=== PATIENT | female | born 1940 | race Caucasian/White ===

== ENCOUNTER 2024-10-13 02:30 | Outpatient (RCR) | payer MEDICARE, OTHER, SELFPAY ==
[2024-10-13 08:53] LABS: Abs Immature Grans 0.01 10^3/uL (0.0-0.06); Absolute Basophil Count 0.04 10^3/uL (0.0-0.2); Absolute Eosinophil Count 0.15 10^3/uL (0.0-0.7); Absolute Lymphocyte Count 1.64 10^3/uL (1.2-3.4); Absolute Monocyte Count 0.43 10^3/uL (0.1-0.8); Absolute Neutrophil Count 4.74 10^3/uL (1.2-6.7); Basophils % 0.6 %; Eosinophils % 2.1 %; HCT 39.4 % (36.0-46.0); HGB 12.8 g/dL (11.2-15.7); Immature Grans % 0.1 %; Lymphocytes % 23.4 %; MCH 29.5 pg (27.0-33.0); MCHC 32.5 % (32.0-36.0); MCV 91 fL (80-95); Monocytes % 6.1 %; Neutrophils % 67.7 %; RBC 4.34 10^6/uL (3.93-5.22); RDW-SD 43.1 fL; WBC 7.01 10^3/uL (4.4-10.8)
[2024-10-13 09:15] LABS: ALT 30 U/L (14-59); AST 13 U/L (15-37); Albumin 3.2 g/dL (3.4-5.0); Alkaline Phosphatase 120 U/L (46-116); Anion Gap 8.3 mmol/L (3-11); BUN 23 mg/dL (7-18); Bilirubin, Total 0.6 mg/dL (0.2-1.0); CO2 28.7 mmol/L (21.0-32.0); CREATININE 1.1 mg/dL (0.55-1.02); Calcium 9.6 mg/dL (8.5-10.1); Chloride 105 mmol/L (98-107); Estimated GFR 49.86 (mL/min/1.73m2); Glucose 383 mg/dL (74-106); Potassium 4.4 mmol/L (3.5-5.1); Sodium 142 mmol/L (136-145); Total Protein 6.6 g/dL (6.4-8.2)
[2024-10-13] MEDS: Normal Saline Flush 10 ML SYR IVP (10:10)
[2024-10-14 13:40] LABS: CA 19-9 2381 U/mL (<35)
[2024-10-15 11:18] VITALS: BP 120/76; PULSE 81; RESP 17; TEMP 36.9; O2SAT 98
[2024-10-18 09:57] LABS: Result Summary NEGATIVE
[2024-10-21 09:28] LABS: Misc Referral (MAYO) See Comments
== END 2024-10-17 23:59 | disposition home or self-care (01) ==
LOC: INF 02:30
PROVIDERS: PCP Family Medicine; Visit Provider Internal Medicine Hematology & Oncology
DX: C25.0 Malignant neoplasm of head of pancreas (principal)
CPT/HCPCS: 36591; 80053; 81232; 81404; 85025; 86301

== ENCOUNTER 2024-11-10 01:56 | Outpatient (RCR) | payer MEDICARE, OTHER, SELFPAY ==
[2024-10-27 10:08] LABS: Abs Immature Grans 0.01 10^3/uL (0.0-0.06); Absolute Basophil Count 0.06 10^3/uL (0.0-0.2); Absolute Eosinophil Count 0.36 10^3/uL (0.0-0.7); Absolute Lymphocyte Count 1.74 10^3/uL (1.2-3.4); Absolute Monocyte Count 0.53 10^3/uL (0.1-0.8); Absolute Neutrophil Count 3.47 10^3/uL (1.2-6.7); Eosinophils % 5.8 %; HGB 12.7 g/dL (11.2-15.7); Immature Grans % 0.2 %; Lymphocytes % 28.2 %; MCH 29.7 pg (27.0-33.0); MCHC 32.6 % (32.0-36.0); MCV 91 fL (80-95); Monocytes % 8.6 %; Neutrophils % 56.2 %; Platelet Count 130 10^3/uL (130-400); RBC 4.27 10^6/uL (3.93-5.22); RDW 13.7 % (11.7-14.6); RDW-SD 45.9 fL; WBC 6.17 10^3/uL (4.4-10.8)
[2024-10-27] MEDS: Normal Saline Flush 10 ML SYR IVP (10:20)
[2024-10-27 10:23] LABS: ALT 35 U/L (14-59); AST 17 U/L (15-37); Albumin 2.8 g/dL (3.4-5.0); Alkaline Phosphatase 132 U/L (46-116); Anion Gap 5.1 mmol/L (3-11); BUN 13 mg/dL (7-18); Bilirubin, Total 0.3 mg/dL (0.2-1.0); CO2 29.9 mmol/L (21.0-32.0); Chloride 108 mmol/L (98-107); Glucose 326 mg/dL (74-106); Potassium 4.5 mmol/L (3.5-5.1); Sodium 143 mmol/L (136-145); Total Protein 5.7 g/dL (6.4-8.2)
[2024-10-28 10:29] LABS: CA 19-9 1778 U/mL (<35)
[2024-11-10] MEDS: Normal Saline Flush 10 ML SYR IVP (09:41)
[2024-11-10 09:47] LABS: Abs Immature Grans 0.02 10^3/uL (0.0-0.06); Absolute Basophil Count 0.06 10^3/uL (0.0-0.2); Absolute Eosinophil Count 0.22 10^3/uL (0.0-0.7); Absolute Lymphocyte Count 1.38 10^3/uL (1.2-3.4); Absolute Neutrophil Count 3.49 10^3/uL (1.2-6.7); Basophils % 1.1 %; Eosinophils % 3.9 %; HCT 33.2 % (36.0-46.0); HGB 10.9 g/dL (11.2-15.7); Immature Grans % 0.4 %; Lymphocytes % 24.3 %; MCH 29.4 pg (27.0-33.0); MCHC 32.8 % (32.0-36.0); MCV 90 fL (80-95); MPV 11.2 fL (8.0-11.0); Monocytes % 8.8 %; Neutrophils % 61.5 %; Platelet Count 192 10^3/uL (130-400); RBC 3.71 10^6/uL (3.93-5.22); RDW 14.1 % (11.7-14.6); RDW-SD 45.6 fL; WBC 5.67 10^3/uL (4.4-10.8)
[2024-11-10 10:06] LABS: ALT 44 U/L (14-59); AST 19 U/L (15-37); Albumin 2.6 g/dL (3.4-5.0); Alkaline Phosphatase 106 U/L (46-116); Anion Gap 9.3 mmol/L (3-11); BUN 16 mg/dL (7-18); Bilirubin, Total 0.3 mg/dL (0.2-1.0); CO2 26.7 mmol/L (21.0-32.0); CREATININE 0.9 mg/dL (0.55-1.02); Calcium 9.3 mg/dL (8.5-10.1); Chloride 107 mmol/L (98-107); Estimated GFR 63.43 (mL/min/1.73m2); Glucose 331 mg/dL (74-106); Potassium 4.2 mmol/L (3.5-5.1); Sodium 143 mmol/L (136-145)
[2024-11-11 13:06] LABS: CA 19-9 912 U/mL (<35)
== END 2024-11-16 23:59 | disposition home or self-care (01) ==
LOC: INF 01:56
PROVIDERS: PCP Family Medicine; Visit Provider Internal Medicine Hematology & Oncology
DX: C25.0 Malignant neoplasm of head of pancreas (principal); Z45.2 Encounter for adjustment and management of vascular access device
CPT/HCPCS: 36415; 36591; 80053; 85025; 86301

== ENCOUNTER 2024-12-15 02:57 | Outpatient (RCR) | payer MEDICARE, OTHER, SELFPAY ==
[2024-11-17] MEDS: Normal Saline Flush 10 ML SYR IVP (09:47)
[2024-11-17 09:55] LABS: Abs Immature Grans 0.03 10^3/uL (0.0-0.06); Absolute Basophil Count 0.02 10^3/uL (0.0-0.2); Absolute Eosinophil Count 0.11 10^3/uL (0.0-0.7); Absolute Lymphocyte Count 1.31 10^3/uL (1.2-3.4); Absolute Monocyte Count 0.16 10^3/uL (0.1-0.8); Absolute Neutrophil Count 3.02 10^3/uL (1.2-6.7); Basophils % 0.4 %; Eosinophils % 2.4 %; HCT 32.5 % (36.0-46.0); HGB 10.5 g/dL (11.2-15.7); Immature Grans % 0.6 %; Lymphocytes % 28.2 %; MCH 29.2 pg (27.0-33.0); MCHC 32.3 % (32.0-36.0); MCV 91 fL (80-95); MPV 10.7 fL (8.0-11.0); Monocytes % 3.4 %; Platelet Count 115 10^3/uL (130-400); RBC 3.59 10^6/uL (3.93-5.22); RDW 14.2 % (11.7-14.6); RDW-SD 46.5 fL; WBC 4.65 10^3/uL (4.4-10.8)
[2024-11-17 10:35] LABS: ALT 31 U/L (14-59); AST 15 U/L (15-37); Albumin 2.8 g/dL (3.4-5.0); Alkaline Phosphatase 111 U/L (46-116); BUN 18 mg/dL (7-18); Bilirubin, Total 0.4 mg/dL (0.2-1.0); CREATININE 0.9 mg/dL (0.55-1.02); Chloride 106 mmol/L (98-107); Estimated GFR 63.43 (mL/min/1.73m2); Glucose 302 mg/dL (74-106); Potassium 4.6 mmol/L (3.5-5.1); Sodium 141 mmol/L (136-145); Total Protein 6.1 g/dL (6.4-8.2)
[2024-11-18 11:51] LABS: CA 19-9 674 U/mL (<35)
[2024-11-24 10:04] LABS: Abs Immature Grans 0.01 10^3/uL (0.0-0.06); Absolute Basophil Count 0.01 10^3/uL (0.0-0.2); Absolute Eosinophil Count 0.06 10^3/uL (0.0-0.7); Absolute Lymphocyte Count 1.14 10^3/uL (1.2-3.4); Absolute Monocyte Count 0.11 10^3/uL (0.1-0.8); Absolute Neutrophil Count 0.85 10^3/uL (1.2-6.7); Basophils % 0.5 %; Eosinophils % 2.8 %; HGB 9.9 g/dL (11.2-15.7); Immature Grans % 0.5 %; Lymphocytes % 52.3 %; MCH 29.6 pg (27.0-33.0); MCV 90 fL (80-95); MPV 10.7 fL (8.0-11.0); Neutrophils % 38.9 %; RBC 3.35 10^6/uL (3.93-5.22); RDW 14.2 % (11.7-14.6); RDW-SD 45.5 fL; WBC 2.18 10^3/uL (4.4-10.8)
[2024-11-24 10:22] LABS: ALT 27 U/L (14-59); AST 19 U/L (15-37); Albumin 2.6 g/dL (3.4-5.0); Alkaline Phosphatase 99 U/L (46-116); Anion Gap 7.8 mmol/L (3-11); BUN 15 mg/dL (7-18); Bilirubin, Total 0.3 mg/dL (0.2-1.0); CO2 28.2 mmol/L (21.0-32.0); CREATININE 0.8 mg/dL (0.55-1.02); Chloride 107 mmol/L (98-107); Estimated GFR 73.06 (mL/min/1.73m2); Glucose 237 mg/dL (74-106); Potassium 4.2 mmol/L (3.5-5.1); Sodium 143 mmol/L (136-145)
[2024-11-24 10:23] LABS: Diff Comment Diff Reviewed; Platelet Count 75 10^3/uL (130-400); RBC Morphology Normal
[2024-11-24] MEDS: Normal Saline Flush 10 ML SYR IVP (10:52)
[2024-12-01 12:07] LABS: Abs Immature Grans 0.01 10^3/uL (0.0-0.06); Absolute Basophil Count 0.03 10^3/uL (0.0-0.2); Absolute Eosinophil Count 0.08 10^3/uL (0.0-0.7); Absolute Lymphocyte Count 1.72 10^3/uL (1.2-3.4); Absolute Monocyte Count 0.47 10^3/uL (0.1-0.8); Absolute Neutrophil Count 1.53 10^3/uL (1.2-6.7); Basophils % 0.8 %; Eosinophils % 2.1 %; HCT 30.7 % (36.0-46.0); HGB 9.8 g/dL (11.2-15.7); Immature Grans % 0.3 %; Lymphocytes % 44.8 %; MCH 28.8 pg (27.0-33.0); MCHC 31.9 % (32.0-36.0); MCV 90 fL (80-95); MPV 10.4 fL (8.0-11.0); Monocytes % 12.2 %; Neutrophils % 39.8 %; Platelet Count 401 10^3/uL (130-400); RDW-SD 51.6 fL; WBC 3.84 10^3/uL (4.4-10.8)
[2024-12-01] MEDS: Normal Saline Flush 10 ML SYR IVP (12:11)
[2024-12-01 12:31] LABS: ALT 29 U/L (14-59); AST 23 U/L (15-37); Albumin 2.9 g/dL (3.4-5.0); Alkaline Phosphatase 114 U/L (46-116); Anion Gap 6.5 mmol/L (3-11); BUN 17 mg/dL (7-18); Bilirubin, Total 0.2 mg/dL (0.2-1.0); CO2 28.5 mmol/L (21.0-32.0); CREATININE 0.7 mg/dL (0.55-1.02); Calcium 9.2 mg/dL (8.5-10.1); Chloride 111 mmol/L (98-107); Estimated GFR 85.76 (mL/min/1.73m2); Glucose 196 mg/dL (74-106); Potassium 3.7 mmol/L (3.5-5.1); Sodium 146 mmol/L (136-145); Total Protein 5.9 g/dL (6.4-8.2)
[2024-12-15] MEDS: Normal Saline Flush 10 ML SYR IVP (09:45)
[2024-12-15 09:57] LABS: Abs Immature Grans 0.03 10^3/uL (0.0-0.06); Absolute Basophil Count 0.04 10^3/uL (0.0-0.2); Absolute Eosinophil Count 0.11 10^3/uL (0.0-0.7); Absolute Lymphocyte Count 1.43 10^3/uL (1.2-3.4); Absolute Monocyte Count 0.57 10^3/uL (0.1-0.8); Basophils % 0.7 %; Eosinophils % 1.9 %; HCT 31.4 % (36.0-46.0); HGB 9.8 g/dL (11.2-15.7); Immature Grans % 0.5 %; Lymphocytes % 25.2 %; MCH 29.1 pg (27.0-33.0); MCHC 31.2 % (32.0-36.0); MCV 93 fL (80-95); MPV 11.7 fL (8.0-11.0); Neutrophils % 61.7 %; Platelet Count 180 10^3/uL (130-400); RBC 3.37 10^6/uL (3.93-5.22); RDW 16.1 % (11.7-14.6); RDW-SD 53.9 fL; WBC 5.68 10^3/uL (4.4-10.8)
[2024-12-15 10:11] LABS: ALT 27 U/L (14-59); AST 23 U/L (15-37); Albumin 2.9 g/dL (3.4-5.0); Alkaline Phosphatase 116 U/L (46-116); Anion Gap 9.1 mmol/L (3-11); BUN 19 mg/dL (7-18); Bilirubin, Total 0.4 mg/dL (0.2-1.0); CO2 25.9 mmol/L (21.0-32.0); CREATININE 0.9 mg/dL (0.55-1.02); Chloride 109 mmol/L (98-107); Estimated GFR 63.43 (mL/min/1.73m2); Glucose 222 mg/dL (74-106); Potassium 3.8 mmol/L (3.5-5.1); Sodium 144 mmol/L (136-145)
[2024-12-16 10:32] LABS: CA 19-9 270 U/mL (<35)
== END 2024-12-17 23:59 | disposition home or self-care (01) ==
LOC: INF 02:57
PROVIDERS: PCP Family Medicine; Visit Provider Internal Medicine Hematology & Oncology
DX: C25.0 Malignant neoplasm of head of pancreas (principal); Z45.2 Encounter for adjustment and management of vascular access device
CPT/HCPCS: 36415; 36591; 80053; 85025; 86301

== ENCOUNTER 2025-01-12 10:50 | Outpatient (RCR) | payer MEDICARE, OTHER, SELFPAY ==
[2024-12-29 12:57] LABS: Abs Immature Grans 0.02 10^3/uL (0.0-0.06); Absolute Basophil Count 0.04 10^3/uL (0.0-0.2); Absolute Eosinophil Count 0.17 10^3/uL (0.0-0.7); Basophils % 0.7 %; Eosinophils % 3.1 %; HCT 31.8 % (36.0-46.0); Immature Grans % 0.4 %; Lymphocytes % 29.5 %; MCH 29.7 pg (27.0-33.0); MCHC 31.4 % (32.0-36.0); MCV 94 fL (80-95); MPV 11.4 fL (8.0-11.0); Neutrophils % 55.3 %; Platelet Count 170 10^3/uL (130-400); RBC 3.37 10^6/uL (3.93-5.22); RDW 16.4 % (11.7-14.6); RDW-SD 56.6 fL; WBC 5.43 10^3/uL (4.4-10.8)
[2024-12-29 13:50] LABS: ALT 30 U/L (14-59); AST 20 U/L (15-37); Albumin 3.2 g/dL (3.4-5.0); Alkaline Phosphatase 117 U/L (46-116); BUN 18 mg/dL (7-18); Bilirubin, Total 0.3 mg/dL (0.2-1.0); CREATININE 0.7 mg/dL (0.55-1.02); Calcium 8.7 mg/dL (8.5-10.1); Chloride 109 mmol/L (98-107); Estimated GFR 85.76 (mL/min/1.73m2); Glucose 232 mg/dL (74-106); Sodium 145 mmol/L (136-145); Total Protein 6.2 g/dL (6.4-8.2)
[2024-12-30 09:19] LABS: CA 19-9 680 U/mL (<35)
[2025-01-12] MEDS: Normal Saline Flush 10 ML SYR IVP (10:58)
[2025-01-12 11:38] LABS: Abs Immature Grans 0.01 10^3/uL (0.0-0.06); Absolute Basophil Count 0.03 10^3/uL (0.0-0.2); Absolute Eosinophil Count 0.09 10^3/uL (0.0-0.7); Absolute Lymphocyte Count 1.34 10^3/uL (1.2-3.4); Absolute Monocyte Count 0.56 10^3/uL (0.1-0.8); Absolute Neutrophil Count 2.83 10^3/uL (1.2-6.7); Basophils % 0.6 %; Eosinophils % 1.9 %; HCT 31.9 % (36.0-46.0); Immature Grans % 0.2 %; Lymphocytes % 27.6 %; MCH 29.2 pg (27.0-33.0); MCHC 31.3 % (32.0-36.0); MCV 93 fL (80-95); MPV 11.4 fL (8.0-11.0); Monocytes % 11.5 %; Neutrophils % 58.2 %; Platelet Count 209 10^3/uL (130-400); RBC 3.42 10^6/uL (3.93-5.22); RDW 16.1 % (11.7-14.6); RDW-SD 54.5 fL; WBC 4.86 10^3/uL (4.4-10.8)
[2025-01-12 11:54] LABS: ALT 29 U/L (14-59); AST 20 U/L (15-37); Albumin 3.2 g/dL (3.4-5.0); Alkaline Phosphatase 106 U/L (46-116); BUN 19 mg/dL (7-18); Bilirubin, Total 0.3 mg/dL (0.2-1.0); CREATININE 0.8 mg/dL (0.55-1.02); Calcium 8.8 mg/dL (8.5-10.1); Chloride 108 mmol/L (98-107); Estimated GFR 73.06 (mL/min/1.73m2); Glucose 254 mg/dL (74-106); Potassium 4.2 mmol/L (3.5-5.1); Sodium 143 mmol/L (136-145); Total Protein 6.1 g/dL (6.4-8.2)
[2025-01-13 10:08] LABS: CA 19-9 492 U/mL (<35)
== END 2025-01-16 23:59 | disposition home or self-care (01) ==
LOC: INF 10:50
PROVIDERS: PCP Family Medicine; Visit Provider Internal Medicine Hematology & Oncology
DX: C25.0 Malignant neoplasm of head of pancreas (principal); Z45.2 Encounter for adjustment and management of vascular access device
CPT/HCPCS: 36415; 36591; 80053; 85025; 86301

== ENCOUNTER 2025-01-27 00:50 | Outpatient (RCR) | payer MEDICARE, OTHER, SELFPAY ==
[2025-01-27 12:36] LABS: Abs Immature Grans 0.01 10^3/uL (0.0-0.06); HCT 32.5 % (36.0-46.0); HGB 10.6 g/dL (11.2-15.7); Immature Grans % 0.2 %; MCH 30.2 pg (27.0-33.0); MCHC 32.6 % (32.0-36.0); MCV 93 fL (80-95); MPV 11.4 fL (8.0-11.0); Platelet Count 238 10^3/uL (130-400); RBC 3.51 10^6/uL (3.93-5.22); RDW 15.9 % (11.7-14.6); RDW-SD 53.4 fL; WBC 5.76 10^3/uL (4.4-10.8)
[2025-01-27] MEDS: Normal Saline Flush 10 ML SYR IVP (12:40)
[2025-01-27 12:54] LABS: ALT 31 U/L (14-59); AST 22 U/L (15-37); Albumin 3.4 g/dL (3.4-5.0); Alkaline Phosphatase 111 U/L (46-116); Anion Gap 11.4 mmol/L (3-11); BUN 16 mg/dL (7-18); Bilirubin, Total 0.3 mg/dL (0.2-1.0); CO2 24.6 mmol/L (21.0-32.0); Calcium 9.1 mg/dL (8.5-10.1); Chloride 109 mmol/L (98-107); Estimated GFR 73.06 (mL/min/1.73m2); Glucose 178 mg/dL (74-106); Potassium 3.6 mmol/L (3.5-5.1); Sodium 145 mmol/L (136-145); Total Protein 6.4 g/dL (6.4-8.2)
[2025-01-27 23:09] LABS: CA 19-9 393 U/mL (<35)
== END 2025-02-16 23:59 | disposition home or self-care (01) ==
LOC: INF 00:50
PROVIDERS: PCP Family Medicine; Visit Provider Internal Medicine Hematology & Oncology
DX: C25.0 Malignant neoplasm of head of pancreas (principal); Z45.2 Encounter for adjustment and management of vascular access device
CPT/HCPCS: 36415; 36591; 80053; 85025; 86301

== ENCOUNTER 2025-03-02 03:38 | Outpatient (RCR) | payer MEDICARE, OTHER, SELFPAY ==
[2025-03-02] MEDS: Normal Saline Flush 10 ML SYR IVP (12:51)
[2025-03-02 13:16] LABS: Abs Immature Grans 0.01 10^3/uL (0.0-0.06); HCT 35.0 % (36.0-46.0); HGB 11.2 g/dL (11.2-15.7); MCH 29.1 pg (27.0-33.0); MCHC 32.0 % (32.0-36.0); MCV 91 fL (80-95); MPV 12.7 fL (8.0-11.0); Platelet Count 112 10^3/uL (130-400); RBC 3.85 10^6/uL (3.93-5.22); RDW 13.1 % (11.7-14.6); RDW-SD 43.4 fL; WBC 4.91 10^3/uL (4.4-10.8)
[2025-03-02 13:45] LABS: Immature Grans % 0.0 %; RBC Morphology Normal
[2025-03-02 13:56] LABS: ALT 23 U/L (14-59); AST 21 U/L (15-37); Albumin 3.3 g/dL (3.4-5.0); Alkaline Phosphatase 104 U/L (46-116); Anion Gap 8.6 mmol/L (3-11); BUN 17 mg/dL (7-18); Bilirubin, Total 0.3 mg/dL (0.2-1.0); CO2 28.4 mmol/L (21.0-32.0); Calcium 9.0 mg/dL (8.5-10.1); Chloride 105 mmol/L (98-107); Estimated GFR 63.43 (mL/min/1.73m2); Glucose 304 mg/dL (74-106); Potassium 4.4 mmol/L (3.5-5.1); Sodium 142 mmol/L (136-145); Total Protein 6.3 g/dL (6.4-8.2)
[2025-03-03 10:06] LABS: CA 19-9 116 U/mL (<35)
== END 2025-03-19 23:59 | disposition home or self-care (01) ==
LOC: INF 03:38
PROVIDERS: PCP Family Medicine; Visit Provider Internal Medicine Hematology & Oncology
DX: C25.0 Malignant neoplasm of head of pancreas (principal); Z45.2 Encounter for adjustment and management of vascular access device
CPT/HCPCS: 36591; 80053; 85025; 86301

== ENCOUNTER 2025-05-25 10:16 | Outpatient (RCR) | payer MEDICARE, OTHER, SELFPAY ==
[2025-05-25 10:38] LABS: Abs Immature Grans 0.02 10^3/uL (0.0-0.06); HCT 32.6 % (36.0-46.0); HGB 10.4 g/dL (11.2-15.7); Immature Grans % 0.4 %; MCH 28.6 pg (27.0-33.0); MCHC 31.9 % (32.0-36.0); MCV 90 fL (80-95); MPV 11.3 fL (8.0-11.0); Platelet Count 280 10^3/uL (130-400); RBC 3.64 10^6/uL (3.93-5.22); RDW 14.7 % (11.7-14.6); RDW-SD 48.2 fL; WBC 5.39 10^3/uL (4.4-10.8)
[2025-05-25 11:07] LABS: ALT 128 U/L (14-59); AST 32 U/L (15-37); Albumin 2.9 g/dL (3.4-5.0); Alkaline Phosphatase 553 U/L (46-116); Anion Gap 9.8 mmol/L (3-11); BUN 15 mg/dL (7-18); Bilirubin, Total 0.4 mg/dL (0.2-1.0); CO2 26.2 mmol/L (21.0-32.0); Calcium 9.2 mg/dL (8.5-10.1); Chloride 106 mmol/L (98-107); Estimated GFR 55.90 (mL/min/1.73m2); Glucose 221 mg/dL (74-106); Potassium 4.2 mmol/L (3.5-5.1); Sodium 142 mmol/L (136-145); Total Protein 6.4 g/dL (6.4-8.2)
[2025-05-25] MEDS: Normal Saline Flush 10 ML SYR IVP (13:31)
[2025-05-26 10:59] LABS: CA 19-9 26 U/mL (<35)
== END 2025-06-18 23:59 | disposition home or self-care (01) ==
LOC: INF 10:16
PROVIDERS: PCP Family Medicine; Visit Provider Internal Medicine Hematology & Oncology
DX: C25.0 Malignant neoplasm of head of pancreas (principal); Z45.2 Encounter for adjustment and management of vascular access device
CPT/HCPCS: 36591; 80053; 85025; 86301